=== PATIENT | female | born 1980 | race Caucasian/White ===

== ENCOUNTER 2019-04-01 08:00 | Outpatient (CLI) | payer MEDICAID ==
[2019-04-01 17:34] LABS: BASOPHILS % (AUTO) 0.5 %; EOSINOPHILS # (AUTO) 0.2 10^3/uL (0.0-0.7); EOSINOPHILS % (AUTO) 3.6 %; HGB - HEMOGLOBIN 12.2 g/dL (12.0-16.0); LYMPHOCYTES # (AUTO) 1.4 10^3/uL (1.5-3.5); LYMPHOCYTES % (AUTO) 24.1 %; MEAN CORPUSCULAR HEMOGLOBIN 31.9 pg (27.0-31.0); MEAN CORPUSCULAR HGB CONC 33.1 g/dL (32.0-36.0); MEAN CORPUSCULAR VOLUME 96.6 fL (81.0-99.0); MEAN PLATELET VOLUME 9.6 fL (7.9-10.8); MONOCYTES # (AUTO) 0.6 10^3/uL (0.0-1.0); NEUTROPHILS # (AUTO) 3.5 10^3/uL (1.5-6.6); NEUTROPHILS % (AUTO) 60.6 %; RED BLOOD COUNT 3.82 10^6/uL (4.20-5.40); RED CELL DISTRIBUTION WIDTH 11.8 % (12.0-15.0); WHITE BLOOD COUNT 5.8 x10^3/uL (4.8-10.8)
[2019-04-01 17:43] LABS: ALBUMIN 4.2 g/dL (3.2-5.5); ALBUMIN/GLOBULIN RATIO 1.6 (1.0-2.2); BILIRUBIN,TOTAL 0.5 mg/dL (0.2-1.0); CALCIUM 8.9 mg/dL (8.5-10.3); CREATININE 0.9 mg/dL (0.4-1.0); TOTAL PROTEIN 6.8 g/dL (6.7-8.2)
== END 2019-04-01 23:58 | disposition home or self-care (01) ==
LOC: LAB.S 08:00
PROVIDERS: ATTEND Physician Assistant Medical
DX: Z51.81 Encounter for therapeutic drug level monitoring (principal); Z79.899 Other long term (current) drug therapy
CPT/HCPCS: 36415; 80053; 85025

== ENCOUNTER 2019-04-12 12:11 | Outpatient (CLI) | payer MEDICAID ==
[2019-04-12 18:09] LABS: BASOPHILS % (AUTO) 0.6 %; EOSINOPHILS # (AUTO) 0.3 10^3/uL (0.0-0.7); EOSINOPHILS % (AUTO) 4.7 %; HGB - HEMOGLOBIN 11.3 g/dL (12.0-16.0); LYMPHOCYTES # (AUTO) 1.4 10^3/uL (1.5-3.5); LYMPHOCYTES % (AUTO) 26.5 %; MEAN CORPUSCULAR HEMOGLOBIN 31.8 pg (27.0-31.0); MEAN CORPUSCULAR VOLUME 99.4 fL (81.0-99.0); MEAN PLATELET VOLUME 9.8 fL (7.9-10.8); MONOCYTES # (AUTO) 0.7 10^3/uL (0.0-1.0); MONOCYTES % (AUTO) 12.9 %; NEUTROPHILS # (AUTO) 2.9 10^3/uL (1.5-6.6); NEUTROPHILS % (AUTO) 55.1 %; PLT - PLATELET COUNT 76 10^3/uL (130-450); RED BLOOD COUNT 3.55 10^6/uL (4.20-5.40); RED CELL DISTRIBUTION WIDTH 11.9 % (12.0-15.0); WHITE BLOOD COUNT 5.3 x10^3/uL (4.8-10.8)
== END 2019-04-12 12:12 | disposition home or self-care (01) ==
LOC: LAB.S 12:11
PROVIDERS: ATTEND Physician Assistant Medical
DX: R94.8 Abnormal results of function studies of other organs and systems (principal)
CPT/HCPCS: 36415; 85025

== ENCOUNTER 2019-06-19 11:21 | Outpatient (CLI) | payer MEDICAID ==
--- NOTE | 2019-06-19 23:30 | Ultrasound Report ---
Reason: THROMBOCYTOPENIA Procedure Date: 06/19/2019 Accession Number: [id number] / [id number] Procedure: US - Abdomen Complete CPT Code: Final Report FULL RESULT: EXAM: ABDOMEN ULTRASOUND EXAM DATE: 06/19/2019 12:19 PM. CLINICAL HISTORY: THROMBOCYTOPENIA. COMPARISON: None. TECHNIQUE: Real-time scanning was performed with static images obtained. FINDINGS: Liver: Mildly echogenic. Normal in size. 14.8 cm. Main portal vein flow: Hepatopetal. Gallbladder: Multiple calcified gallstones with the largest measuring 1.9 cm. No gallbladder wall thickening or pericholecystic fluid. Negative sonographic Banerjee sign. Biliary System: Common bile duct measures 3 mm. No intrahepatic or extrahepatic ductal dilatation. Pancreas: The visible portions are within normal limits. No ascites. Kidneys: Right: 10.2 cm longitudinally. Normal. No contour-deforming mass, stones, or hydronephrosis. Left: 10.0 cm longitudinally. Normal. No contour-deforming mass, stones, or hydronephrosis. Spleen: 10.1 x 3.5 x 10.3 cm. Normal in size and echotexture. Aorta and Inferior Vena Cava: Within normal limits. Other: None. IMPRESSION: Cholelithiasis without evidence of acute cholecystitis. Mild hepatic steatosis. RADIA
== END 2019-06-19 11:22 | disposition home or self-care (01) ==
LOC: DI 11:21
PROVIDERS: ATTEND Internal Medicine
DX: D69.6 Thrombocytopenia, unspecified (principal); K80.20 Calculus of gallbladder without cholecystitis without obstruction; K76.0 Fatty (change of) liver, not elsewhere classified
CPT/HCPCS: 76700

== ENCOUNTER 2020-05-24 18:31 | Emergency (ER) | payer MEDICAID ==
--- NOTE | 2020-05-24 18:53 | ED Physician Documentation ---
History of Present Illness - Stated complaint Stated Complaint: STROKE LIKE SYMPTOMS - Additonal information Additional information: 40-year-old female is brought to the emergency department for evaluation of aphasia right-sided facial droop. Last known normal was yesterday evening before going to bed. The sister reports that the patient slept all day today but about 430 or 5 this afternoon mom decided to wake the patient up. When she woke up she was noted to have some aphasia saying inappropriate words, having slurred speech and had right-sided facial droop. Patient does have a history of depression. Is not taking anticoagulation per the sister no history of alcohol or drug use. There does appear to be a history of a thrombocytopenia in the computer. PD PAST MEDICAL HISTORY - Past Medical History Cardiovascular: None Neuro: None Endocrine/Autoimmune: None GI: None : None Psych: Depression Musculoskeletal: None Derm: None - Present Medications Home Medications: Ambulatory Orders Medication Instructions Recorded Confirmed Escitalopram [Lexapro] 10 mg PO DAILY 05/31/19 05/24/20 Mecobalamin [B12 Active] 1,000 mcg PO DAILY 05/31/19 05/24/20 traZODone [Desyrel] 50 mg PO DAILY 05/31/19 05/24/20 - Allergies Allergies/Adverse Reactions: Allergies Allergy/AdvReac Type Severity Reaction Status Date / Time No Known Drug Allergies Allergy Verified 05/24/20 18:44 - Social History Smoking Status: Never smoker PD ED PE EXPANDED - General General: No acute distress - Eyes Eyes: PERRL (Patient was unable to participate in extraocular movement exam) - Cardiac Cardiac: Regular Rate, Regular Rhythm, Radial strong equal, Cap refill < 2 sec - Respiratory Respiratory: Clear to ausultation ken. No: Distress, Labored - Abdomen Abdomen: Normal Bowel sounds. No: Tender to palpation - Neuro Neuro: Confused, CN deficit (Right-sided facial droop, slurring of words. Some aphasia and inappropriate word expression. Right arm positive motor drift. Left arm and legs intact with equal strength.), Aphasia (Mild right-sided facial droop. Slurred words. Inappropriate word finding.). No: Normal Speech, CNII- XII intact - GCS Eye Opening: Spontaneous Motor: Obeys Commands Verbal: Inappropriate Total: 13 Results - Vitals Vitals: Vital Signs - 24 hr 05/24/20 05/24/20 05/24/20 18:41 18:56 19:21 Temperature 36.5 C Heart Rate 59 L 55 L 65 Respiratory 19 19 17 Rate Blood Pressure 103/74 103/74 127/114 H O2 Saturation 100 100 100 05/24/20 05/24/20 19:41 19:54 Temperature 37.4 C Heart Rate 53 L 56 L Respiratory 20 18 Rate Blood Pressure 98/71 O2 Saturation 100 100 Oxygen O2 Source Room air - EKG (time done) 1920 Rate: Rate (enter#) (62) Rhythm: NSR [place]: Normal Intervals: Normal DC QRS: Normal Ischemia: Normal ST segments Compare to prior EKG: Old EKG unavailable Computer interpretation: Agree with computer - Labs Labs: Laboratory Tests 05/24/20 05/24/20 05/24/20 18:47 18:52 18:52 WBC 9.9 RBC 4.65 Hgb 14.9 Hct 44.9 MCV 96.6 MCH 32.0 H MCHC 33.2 RDW 11.8 L Plt Count 254 MPV 8.8 Neut # (Auto) 8.7 H Lymph # (Auto) 0.7 L [place] # (Auto) 0.5 Eos # (Auto) 0.0 Baso # (Auto) 0.0 Absolute Nucleated RBC 0.00 Nucleated RBC % 0.0 PT 13.8 H INR 1.3 H Sodium Potassium Chloride Carbon Dioxide Anion Gap BUN Creatinine Estimated GFR (MDRD) Glucose POC Whole Bld Glucose 122 H Calcium Total Bilirubin AST ALT Alkaline Phosphatase Total Protein Albumin Globulin Albumin/Globulin Ratio Lipase Urine Color Urine Clarity Urine pH Ur Specific [place] Urine Protein Urine Glucose (UA) Urine Ketones Urine Occult Blood Urine Nitrite Urine Bilirubin Urine Urobilinogen Ur Leukocyte Esterase Ur Microscopic Review Urine Culture Comments Urine HCG, Qual Nasal Adenovirus (PCR) Nasal B. parapertussis DNA (PCR) Nasal Coronavir 229E PCR Nasal Coronavir HKU1 PCR Nasal Coronavir NL63 PCR Nasal Coronavir OC43 PCR Nasal Enterovir/Rhinovir PCR Nasal Influenza B PCR Nasal Influenza A PCR Nasal Parainfluen 1 PCR Nasal Parainfluen 2 PCR Nasal Parainfluen 3 PCR Nasal Parainfluen 4 PCR Nasal RSV (PCR) Nasal B.pertussis DNA PCR Nasal C.pneumoniae (PCR) [place]onal[place] Human Metapneumo PCR Nasal M.pneumoniae (PCR) Nasal SARS-CoV-2 (PCR) Urine Opiates Screen Ur Oxycodone Screen Urine Methadone Screen Ur Propoxyphene Screen Ur Barbiturates Screen Ur Tricyclics Screen Ur Phencyclidine Scrn Ur Amphetamine Screen U Methamphetamines Scrn U Benzodiazepines Scrn Urine Cocaine Screen U Cannabinoids Screen 05/24/20 05/24/20 05/24/20 18:52 19:15 19:35 WBC RBC Hgb Hct MCV MCH MCHC RDW Plt Count MPV Neut # (Auto) Lymph # (Auto) [place] # (Auto) Eos # (Auto) Baso # (Auto) Absolute Nucleated RBC Nucleated RBC % PT INR Sodium 141 Potassium 3.8 Chloride 102 Carbon Dioxide 24 Anion Gap 15.0 H BUN 13 Creatinine 0.8 Estimated GFR (MDRD) 80 L Glucose 145 H POC Whole Bld Glucose Calcium 9.7 Total Bilirubin 0.6 AST 21 ALT 18 Alkaline Phosphatase 51 Total Protein 8.4 H Albumin 4.8 Globulin 3.6 Albumin/Globulin Ratio 1.3 Lipase 37 Urine Color YELLOW Urine Clarity CLEAR Urine pH 5.5 Ur Specific [place] >=1.030 H Urine Protein NEGATIVE Urine Glucose (UA) NEGATIVE Urine Ketones 40 H Urine Occult Blood NEGATIVE Urine Nitrite NEGATIVE Urine Bilirubin NEGATIVE Urine Urobilinogen 0.2 (NORMAL) Ur Leukocyte Esterase NEGATIVE Ur Microscopic Review NOT INDICATED Urine Culture Comments NOT INDICATED Urine HCG, Qual NEGATIVE Nasal Adenovirus (PCR) NOT DETECTED Nasal B. parapertussis DNA (PCR) NOT DETECTED Nasal Coronavir 229E PCR NOT DETECTED Nasal Coronavir HKU1 PCR NOT DETECTED Nasal Coronavir NL63 PCR NOT DETECTED Nasal Coronavir OC43 PCR NOT DETECTED Nasal Enterovir/Rhinovir PCR NOT DETECTED Nasal Influenza B PCR NOT DETECTED Nasal Influenza A PCR NOT DETECTED Nasal Parainfluen 1 PCR NOT DETECTED Nasal Parainfluen 2 PCR NOT DETECTED Nasal Parainfluen 3 PCR NOT DETECTED Nasal Parainfluen 4 PCR NOT DETECTED Nasal RSV (PCR) NOT DETECTED Nasal B.pertussis DNA PCR NOT DETECTED Nasal C.pneumoniae (PCR) NOT DETECTED [place] Human Metapneumo PCR NOT DETECTED Nasal M.pneumoniae (PCR) NOT DETECTED Nasal SARS-CoV-2 (PCR) NOT DETECTED Urine Opiates Screen NEGATIVE Ur Oxycodone Screen NEGATIVE Urine Methadone Screen NEGATIVE Ur Propoxyphene Screen NEGATIVE Ur Barbiturates Screen NEGATIVE Ur Tricyclics Screen NEGATIVE Ur Phencyclidine Scrn NEGATIVE Ur Amphetamine Screen NEGATIVE U Methamphetamines Scrn NEGATIVE U Benzodiazepines Scrn NEGATIVE Urine Cocaine Screen NEGATIVE U Cannabinoids Screen NEGATIVE - Rads (name of study) CTA head and neck w/wo Radiology: Final report received (Large intraparenchymal hemorrhage in the left upper lobe measuring 5.3 cm mild to moderate 6 mm left to right midline shift. Effacement of the anterior horn of the left ventricle. No large vessel occlusion no aneurysm identified) PD MEDICAL DECISION MAKING - ED course Complexity details: reviewed results, re-evaluated patient, considered differential, d/w patient, d/w retirement sales consultant ED course: 40-year-old female presented to the emergency department for aphasia right-sided facial droop and right-sided weakness. She was last known normal last night. Per the family she slept all day today but when awakened they noted the aphasia and right-sided deficits. Patient was taken emergently to the CT scanner during which a large 5.3 cm intraparenchymal hemorrhage was seen on the left side. We immediately contacted [facility] and I spoke with neurosurgeon Dr. Meraz who is agreed to transfer the patient and acceptance. She will go directly to the emergency department and given road and weather conditions will be flown emergently. Urine tox screen is negative. Screening CBC shows no significant thrombocytopenia. Electrolytes renal function preserved. Appropriate COBRA paperwork was completed. Patient will be flown to [facility] under the care of neurosurgery there. Accepting physician Dr. Meraz. Pt remains hemodynamically stable without hypertension. She is maintaining her airway and has otherwise remained stable here in the ED Departure - Departure Disposition: 02 Transfer Acute Care Hosp Clinical Impression: ICH (intracerebral hemorrhage) Qualifiers: Intracerebral hemorrhage etiology: nontraumatic Cerebral hemorrhage location: cerebral hemisphere, unspecified portion Laterality: left Qualified Code(s): I61.2 - Nontraumatic intracerebral hemorrhage in hemisphere, unspecified Discharge Date/Time: 05/24/20 20:12
[2020-05-24 19:00] LABS: BASOPHILS % (AUTO) 0.4 %; HGB - HEMOGLOBIN 14.9 g/dL (12.0-16.0); LYMPHOCYTES # (AUTO) 0.7 10^3/uL (1.5-3.5); LYMPHOCYTES % (AUTO) 6.7 %; MEAN CORPUSCULAR HGB CONC 33.2 g/dL (32.0-36.0); MEAN CORPUSCULAR VOLUME 96.6 fL (81.0-99.0); MEAN PLATELET VOLUME 8.8 fL (7.9-10.8); MONOCYTES # (AUTO) 0.5 10^3/uL (0.0-1.0); NEUTROPHILS # (AUTO) 8.7 10^3/uL (1.5-6.6); NEUTROPHILS % (AUTO) 87.7 %; PLT - PLATELET COUNT 254 10^3/uL (130-450); RED BLOOD COUNT 4.65 10^6/uL (4.20-5.40); RED CELL DISTRIBUTION WIDTH 11.8 % (12.0-15.0); WHITE BLOOD COUNT 9.9 x10^3/uL (4.8-10.8)
[2020-05-24] MEDS ORDERED: IOVERSOL 320 100 ML VIAL IVP ONE ×2 (19:00→19:18)
[2020-05-24 19:06] LABS: INR 1.3 (0.8-1.2); PT - PROTHROMBIN TIME 13.8 secs (9.9-12.6)
[2020-05-24 19:12] LABS: ALBUMIN 4.8 g/dL (3.2-5.5); ALBUMIN/GLOBULIN RATIO 1.3 (1.0-2.2); BILIRUBIN,TOTAL 0.6 mg/dL (0.2-1.0); CALCIUM 9.7 mg/dL (8.5-10.3); CREATININE 0.8 mg/dL (0.4-1.0); TOTAL PROTEIN 8.4 g/dL (6.7-8.2)
[2020-05-24 19:26] LABS: MUDS CUTOFF CONCENTRATIONS CUTOFF CONC BELOW:
[2020-05-24 19:28] LABS: BILIRUBIN,URINE NEGATIVE (NEGATIVE); GLUCOSE, URINE (UA) NEGATIVE (NEGATIVE); KETONES,URINE (UA) 40 mg/dL (NEGATIVE); LEUKOCYTE ESTERASE, URINE NEGATIVE (NEGATIVE); NITRITE,URINE NEGATIVE (NEGATIVE); OCCULT BLOOD,URINE NEGATIVE (NEGATIVE); PH,URINE 5.5 PH (5.0-7.5); PROTEIN,URINE NEGATIVE (NEGATIVE); UROBILINOGEN,URINE 0.2 (NORMAL) E.U./dL (NORMAL)
[2020-05-24 19:30] LABS: CLARITY,URINE CLEAR (CLEAR); HCG UR QUAL NEGATIVE
--- NOTE | 2020-05-24 19:40 | CT Report ---
PROCEDURE: ANGIO HEAD W/WO INDICATIONS: L sided facial droop CONTRAST: IV CONTRAST: Optiray 320 ml: 80 PO CONTRAST: *NO PO CONTRAST TECHNIQUE: Precontrast 4.5 mm thick angled axial sections acquired from the foramen magnum to the vertex. Afte r the administration of intravenous contrast, 1 mm thick sections acquired through the [place] of [place] is. Postcontrast 4.5 mm thick sections then re-acquired from the foramen magnum to the vertex. 3-di mensional qetscqk-phntdpdoc-hzqbtlqdbg (MIP) and/or volume rendering reformats were acquired of the c entral intracranial vasculature. For radiation dose reduction, the following was used: automated ex posure control, adjustment of mA and/or kV according to patient size. COMPARISON: None. FINDINGS: Image quality: Excellent. Anterior circulation: Intracranial internal carotid arteries are normal in size and flow. The flow within the paired anterior cerebral arteries is normal and symmetric. The flow within the middle cer ebral arteries is normal and symmetric. The anterior communicating artery is seen. No aneurysms are seen. Posterior circulation: Visualized portions of the vertebral arteries demonstrate normal caliber, and join to form a normal appearing basilar artery. Flow within the posterior cerebral arteries is norm al and symmetric. No aneurysms are seen. CSF spaces: Ventricles are normal in size and shape. Basal cisterns are patent. No extra-axial flu id collections. Brain: Hyperdense blood products in the left temporal lobe measuring 5.3 x 4.2 x 3.7 cm, (5/14 and /). There is effacement of the left lateral ventricle. There is 6 mm of pjxu-np-[id number] midline shift . There is a vessel coursing through this area of hemorrhage on the delayed phase only. Suspect a ve in. [place]-white matter interface appears intact. Skull and face: Calvarium and facial bones appear intact, without suspicious lesions. Sinuses: Visualized sinuses and mastoids are clear. IMPRESSION: 1. Large intraparenchymal hemorrhage in the left upper lobe measuring 5.3 cm. Mild to moderate 6 mm o f [id number] midline shift. Effacement of the anterior horn of the left ventricle. 2. No large vessel occlusion. No aneurysm identified. Preliminary results were communicated to Crystal Olivera at 05/24/2020 7:23 PM PST. Reviewed by: Rashaun Jordan MD on 05/24/2020 7:38 PM PST Approved by: Rashaun Jordan MD on 05/24/2020 7:38 PM PST Station ID: [id number]
[2020-05-24 19:42] VITALS: BP 98/71
[2020-05-24 19:43] LABS: AMPHETAMINE SCREEN,URINE NEGATIVE (NEGATIVE); BENZODIAZEPINES SCREEN, URINE NEGATIVE (NEGATIVE); COCAINE SCREEN URINE NEGATIVE (NEGATIVE); METHADONE SCREEN, URINE NEGATIVE (NEGATIVE); METHAMPHETAMINES SCREEN, URINE NEGATIVE (NEGATIVE); OPIATE SCREEN, URINE NEGATIVE (NEGATIVE); OXYCODONE SCREEN, URINE NEGATIVE (NEGATIVE); PROPOXYPHENE SCREEN, URINE NEGATIVE (NEGATIVE); TRICYCLIC ANTIDEPRESSANT,URINE NEGATIVE (NEGATIVE)
--- NOTE | 2020-05-24 19:45 | CT Report ---
PROCEDURE: ANGIO NECK W INDICATIONS: aphasia; facial droop CONTRAST: IV CONTRAST: Optiray 320 ml: 80 PO CONTRAST: *NO PO CONTRAST TECHNIQUE: After the administration of intravenous contrast, 1.5 mm axial sections acquired from the aortic arch to the [place] of [place]. Coronal 3-D maximum intensity projection (MIP) and/or volume rendering ref ormats were then performed. For radiation dose reduction, the following was used: automated exposur e control, adjustment of mA and/or kV according to patient size. COMPARISON: None. FINDINGS: Image quality: Excellent. Left temporal lobe intraparenchymal hematoma. Please see separately dictated CT head without and with IV contrast. Carotid system: The great vessels demonstrate a conventional anatomy as they arise from the aortic a rch. The origins of the common carotid arteries appear patent. The common carotid arteries demonstr ate normal calibers and courses. The bifurcation regions appear normal bilaterally. The internal ca rotid arteries demonstrate normal caliber and course. Posterior circulation: The origins of the vertebral arteries appear patent. The more superior porti ons of the vertebral arteries demonstrate normal course and caliber. They join to form a normal appe aring basilar artery. Soft tissues: Visualized neck soft tissues demonstrate no suspicious abnormalities. The thyroid gla nd is normal in size. Bones: No suspicious bony lesions. Visualized cervical spine appears normally aligned. IMPRESSION: No large vessel occlusion in the neck. No stenosis. No dissection. Large left temporal lobe intraparenchymal hematoma. Please see separately dictated CT head without and with IV contrast. The estimate of stenosis included in the report of the imaging study was calculated using the NASCET method Reviewed by: Rashaun Jordan MD on 05/24/2020 7:44 PM PST Approved by: Rashaun Jordan MD on 05/24/2020 7:44 PM PST Station ID: [id number]
[2020-05-24 22:02] LABS: C. PNEUMONIAE- RESP PCR PANEL NOT DETECTED
== END 2020-05-24 20:12 | disposition short-term general hospital (02) ==
LOC: ED 18:31
DX: I61.2 Nontraumatic intracerebral hemorrhage in hemisphere, unspecified (principal); G81.91 Hemiplegia, unspecified affecting right dominant side; R47.01 Aphasia; R29.810 Facial weakness; I49.1 Atrial premature depolarization; Z20.822 Contact with and (suspected) exposure to COVID-19
CPT/HCPCS: 0202U; 36415; 51702; 70496; 70498; 80053; 80306; 81003; 81025; 83690; 85025; 85610; 93005; 99281; 99285; Q9967; 81001; 87086

== ENCOUNTER 2020-05-24 21:08 | Outpatient (CLI) | payer MEDICAID | END 2020-05-24 21:09 | disposition other institution (70) | LOC: EMS 21:08 | DX: I61.9 Nontraumatic intracerebral hemorrhage, unspecified (principal) | CPT/HCPCS: A0425; A0428 ==

== ENCOUNTER 2020-07-11 11:16 | Emergency (ER) | payer MEDICAID ==
[2020-07-11 12:10] LABS: BILIRUBIN,URINE NEGATIVE (NEGATIVE); GLUCOSE, URINE (UA) NEGATIVE (NEGATIVE); KETONES,URINE (UA) TRACE mg/dL (NEGATIVE); LEUKOCYTE ESTERASE, URINE TRACE (NEGATIVE); NITRITE,URINE NEGATIVE (NEGATIVE); OCCULT BLOOD,URINE NEGATIVE (NEGATIVE); PROTEIN,URINE 30 mg/dL (NEGATIVE); UROBILINOGEN,URINE 0.2 (NORMAL) E.U./dL (NORMAL)
[2020-07-11 12:11] LABS: CLARITY,URINE SL. CLOUDY (CLEAR)
[2020-07-11 12:12] LABS: HCG UR QUAL NEGATIVE
[2020-07-11 12:15] LABS: BACTERIA,URINE Rare /HPF (None Seen); RBC,URINE 0-5 /HPF (0-5); SQUAMOUS EPITHELIAL CELL,UR MANY Squamous (<= Few)
[2020-07-11 12:51] LABS: ALBUMIN 4.1 g/dL (3.2-5.5); ALBUMIN/GLOBULIN RATIO 1.2 (1.0-2.2); BILIRUBIN,TOTAL 0.4 mg/dL (0.2-1.0); CALCIUM 9.7 mg/dL (8.5-10.3); CREATININE 0.8 mg/dL (0.4-1.0); POTASSIUM 3.7 mmol/L (3.5-5.0); TOTAL PROTEIN 7.6 g/dL (6.7-8.2)
[2020-07-11] MEDS ORDERED: SODIUM CHLORIDE 0.9% 1,000 ML IV STA (13:20)
--- NOTE | 2020-07-11 13:21 | ED Physician Documentation ---
PD HPI SYNCOPE - Stated complaint Stated Complaint: LOSS OF CONSCIOUNESS IN PT/OT - Chief complaint Chief Complaint: General - History obtained from History obtained from: Patient - History of Present Illness Witnessed: Witnessed Timing - onset: Today Duration: Seconds Preceding symptoms: Vision changes, Palpitations, Light headed Associated symptoms: Other (recovered) Contributing factors: Decreased PO intake, Exertion, Other (recent craniotomy) Injury occurred: None Similar symptoms before: Has not had sx before Recently seen: Emergency Dept, Surgery, Transferred - Additional information Additional information: 40-year-old female 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 She has recovered most of her function and today in physical therapy she was riding an exercise bike when she had a syncopal episode after becoming diaphoretic and nauseas. Review of Systems Constitutional: denies: Fever Eyes: denies: Decreased vision Ears: denies: Ear pain Nose: denies: Congestion Throat: denies: Oral lesions / sores Cardiac: denies: Chest pain / pressure, Palpitations Respiratory: denies: Dyspnea, Cough GI: denies: Abdominal Pain, Nausea, Constipation, Diarrhea : denies: Dysuria, Frequency Skin: denies: Rash Musculoskeletal: denies: Neck pain, Back pain, Extremity pain Neurologic: reports: Syncope. denies: Generalized weakness, Focal weakness, Numbness, Seizure, Confused, Altered mental status PD PAST MEDICAL HISTORY - Past Medical History Past Medical History: Yes Cardiovascular: None Neuro: None, CVA Endocrine/Autoimmune: None GI: None : None Psych: Depression Musculoskeletal: None Derm: None - Past Surgical History Past Surgical History: Yes - Present Medications Home Medications: Ambulatory Orders Medication Instructions Recorded Confirmed Escitalopram [Lexapro] 10 mg PO DAILY 05/31/19 07/11/20 traZODone [Desyrel] 50 mg PO DAILY 05/31/19 07/11/20 - Allergies Allergies/Adverse Reactions: Allergies Allergy/AdvReac Type Severity Reaction Status Date / Time No Known Drug Allergies Allergy Verified 05/24/20 18:44 - Social History Does the pt smoke?: No Smoking Status: Never smoker Does the pt drink ETOH?: No Does the pt have substance abuse?: No - Immunizations Immunizations are current?: Yes - POLST Patient has POLST: No PD ED PE NORMAL - Vitals Vital signs reviewed: Yes (tachy) - General General: Alert and oriented X 3, No acute distress, Well developed/nourished - HEENT HEENT: PERRL, EOMI, Ears normal, Other (There is asymetry to the head with) - Neck Neck: Supple, no meningeal sign, No bony TTP - Cardiac Cardiac: No murmur, Other (tachy to 110) - Abdomen Abdomen: Normal bowel sounds, Soft, Non tender, Non distended, No organomegaly - Back Back: No CVA TTP, No spinal TTP - Derm Derm: Normal color, Warm and dry, No rash - Extremities Extremities: No deformity, No edema - Neuro Neuro: Alert and oriented X 3, electronics system mechanic 2-12 intact, No motor deficit, No sensory deficit, Normal speech Eye Opening: Spontaneous Motor: Obeys Commands Verbal: Oriented GCS Score: 15 - Psych Psych: Normal mood, Normal affect Results - Vitals Vitals: Vital Signs - 24 hr 07/11/20 07/11/20 07/11/20 11:23 12:03 13:44 Temperature 36.5 C Heart Rate 102 H 95 89 Respiratory 17 23 13 Rate Blood Pressure 106/64 105/77 109/77 O2 Saturation 100 99 100 Oxygen O2 Source Room air - EKG (time done) 1150 Rate: Rate (enter#) (91) Rhythm: NSR Ischemia: Normal ST segments Compare to prior EKG: Unchanged from prior EKG (SPT 05-24-2020 no sig changes) Computer interpretation: Agree with computer - Labs Labs: Laboratory Tests 07/11/20 07/11/20 07/11/20 12:00 12:25 12:25 WBC RBC Hgb Hct MCV MCH MCHC RDW Plt Count MPV Neut # (Auto) Lymph # (Auto) [place] # (Auto) Eos # (Auto) Baso # (Auto) Absolute Nucleated RBC Nucleated RBC % D-Dimer Sodium 139 Potassium 3.7 Chloride 98 L Carbon Dioxide 25 Anion Gap 16.0 H BUN 10 Creatinine 0.8 Estimated GFR (MDRD) 80 L Glucose 136 H Lactic Acid 1.6 Calcium 9.7 Total Bilirubin 0.4 AST 13 ALT 15 Alkaline Phosphatase 63 Troponin I High Sens Total Protein 7.6 Albumin 4.1 Globulin 3.5 Albumin/Globulin Ratio 1.2 Lipase 34 Urine Color YELLOW Urine Clarity SL. CLOUDY Urine pH 6.0 Ur Specific [place] >=1.030 H Urine Protein 30 H Urine Glucose (UA) NEGATIVE Urine Ketones TRACE Urine Occult Blood NEGATIVE Urine Nitrite NEGATIVE Urine Bilirubin NEGATIVE Urine Urobilinogen 0.2 (NORMAL) Ur Leukocyte Esterase TRACE H Urine RBC 0-5 Urine WBC 4-5 Ur Squamous Epith Cells MANY Squamous H Urine Bacteria Rare Ur Microscopic Review INDICATED Urine Culture Comments NOT INDICATED Urine HCG, Qual NEGATIVE 07/11/20 07/11/20 07/11/20 12:25 13:20 13:40 WBC 7.0 RBC 3.84 L Hgb 11.6 L Hct 35.4 L MCV 92.2 MCH 30.2 MCHC 32.8 RDW 12.0 Plt Count 248 MPV 8.5 Neut # (Auto) 5.6 Lymph # (Auto) 0.6 L [place] # (Auto) 0.6 Eos # (Auto) 0.2 Baso # (Auto) 0.0 Absolute Nucleated RBC 0.00 Nucleated RBC % 0.0 D-Dimer 451.1 H Sodium Potassium Chloride Carbon Dioxide Anion Gap BUN Creatinine Estimated GFR (MDRD) Glucose Lactic Acid Calcium Total Bilirubin AST ALT Alkaline Phosphatase Troponin I High Sens < 2.3 L Total Protein Albumin Globulin Albumin/Globulin Ratio Lipase Urine Color Urine Clarity Urine pH Ur Specific [place] Urine Protein Urine Glucose (UA) Urine Ketones Urine Occult Blood Urine Nitrite Urine Bilirubin Urine Urobilinogen Ur Leukocyte Esterase Urine RBC Urine WBC Ur Squamous Epith Cells Urine Bacteria Ur Microscopic Review Urine Culture Comments Urine HCG, Qual - Rads (name of study) CT head w/o Radiology: Prelim report reviewed (Impression: 1. Postsurgical sequelae. Near complete evacuation of the left frontal lobe basal ganglia hemorrhagic focus, with a smaller, 20 mm diameter hemorrhagic focus remaining. Left frontal craniotomy associated with a subgaleal fluid collection as described above. ), Final report received ( There is a small focus of left lateral herniation of the left frontal lobe into the subgaleal fluid collection as described above. There is associated mild leftward midline shift), EMP read indepedently, See rad report CTA chest Radiology: Prelim report reviewed (Impression: 1. No acute process. No pulmonary embolus.), EMP read indepedently, See rad report Procedures - IVC sono (time) 1310 Bedside IVC sono: IVC measures (cm) (0.94), IVC collapsed c insp (cm) (complete), Dehydration (est 2 liter deficit.) PD MEDICAL DECISION MAKING - ED course Complexity details: reviewed results, re-evaluated patient, considered differential, d/w patient, d/w cognos consultant (Melanie at [facility] neurosurgery reviewed images and requests patient follow up as planned in 2 days time. ) ED course: 40-year-old female with a prior craniotomy for parenchymal hemorrhagic CVA has had a syncopal episode today and this appears on evaluation to be related to dehydration with exertion. She is administered in intravenous fluids and CT of the head is obtained. Patient is hydrated here in the emergency department and we did obtain the CT of the patient's head and this was reviewed with Dr. Navarro at the [facility] neurosurgery, and he recommends the patient follow-up with neurosurgery as planned in 2 days time as she does still need to have a fluid collection addressed. The patient did undergo CTA of the chest with an elevated D-dimer and syncope and this was again a negative study. The patient appears well at the time of discharge and she is being diagnosed with syncope related to exertion with dehydration. Departure - Departure Disposition: 01 Home, Self Care Clinical Impression: Dehydration, Syncope with normal neurologic examination Condition: Stable Instructions: ED Dehydration, ED Syncope Vasovagal Follow-Up: Camila Christian ARNP [Primary Care Provider] - Comments: Follow-up with neurosurgery at [facility] as planned this week.
[2020-07-11 13:24] LABS: BASOPHILS % (AUTO) 0.3 %; EOSINOPHILS # (AUTO) 0.2 10^3/uL (0.0-0.7); EOSINOPHILS % (AUTO) 2.2 %; HCT - HEMATOCRIT 35.4 % (37.0-47.0); HGB - HEMOGLOBIN 11.6 g/dL (12.0-16.0); LYMPHOCYTES # (AUTO) 0.6 10^3/uL (1.5-3.5); LYMPHOCYTES % (AUTO) 8.9 %; MEAN CORPUSCULAR HEMOGLOBIN 30.2 pg (27.0-31.0); MEAN CORPUSCULAR HGB CONC 32.8 g/dL (32.0-36.0); MEAN CORPUSCULAR VOLUME 92.2 fL (81.0-99.0); MEAN PLATELET VOLUME 8.5 fL (7.9-10.8); MONOCYTES # (AUTO) 0.6 10^3/uL (0.0-1.0); MONOCYTES % (AUTO) 8.3 %; NEUTROPHILS # (AUTO) 5.6 10^3/uL (1.5-6.6); PLT - PLATELET COUNT 248 10^3/uL (130-450); RED BLOOD COUNT 3.84 10^6/uL (4.20-5.40)
[2020-07-11] MEDS ORDERED: IOVERSOL 320 100 ML VIAL IVP ONE ×2 (14:44→18:00)
--- NOTE | 2020-07-11 15:15 | CT Report ---
PROCEDURE: ANGIO CHEST W/WO INDICATIONS: tachy, elevated d-dimer syncope CONTRAST: IV CONTRAST: Optiray 320 ml: 80 PO CONTRAST: *NO PO CONTRAST TECHNIQUE: After the administration of intravenous contrast, 2 mm thick sections acquired from the pulmonary api eusebio to the posterior costophrenic angles. 3-dimensional maximum intensity projection (MIP) coronal a nd sagittal reformats were then acquired through the thorax. For radiation dose reduction, the follow ing was used: automated exposure control, adjustment of mA and/or kV according to patient size. COMPARISON: None FINDINGS: Image quality: Excellent. Pulmonary arteries: Pulmonary arteries are normal in size, and demonstrate no intraluminal filling d efects to suggest central pulmonary embolism. Lungs and pleura: Lungs are clear. No pleural effusions or pneumothorax. Central and peripheral ai rways are patent. Mediastinum: Heart size is normal, without pericardial effusion. No mediastinal or hilar adenopathy . Thoracic aorta is normal in caliber and enhancement. Esophagus is normal in caliber, without hiat al hernia. Bones and chest wall: No suspicious bony lesions. Ribs and thoracic spine appear intact throughout. The thyroid is normal. No axillary or supraclavicular adenopathy. Abdomen: Visualized upper abdominal solid organs appear normal in the early arterial phase of enhanc ement. IMPRESSION: 1. No acute process. 2. No pulmonary embolus. Reviewed by: Alexandr Triana MD on 07/11/2020 3:14 PM PDT Approved by: Alexandr Triana MD on 07/11/2020 3:14 PM PDT Station ID: [id number]
--- NOTE | 2020-07-11 15:20 | CT Report ---
PROCEDURE: HEAD WO INDICATIONS: syncope recent craniotomy TECHNIQUE: Noncontrast 4.5 mm thick angled axial sections acquired from the foramen magnum to the vertex. For r adiation dose reduction, the following was used: automated exposure control, adjustment of mA and/or kV according to patient size. COMPARISON: CT examination dated 05/24/2020 FINDINGS: Image quality: Excellent. CSF spaces: Basal cisterns are patent. No extra-axial fluid collections. Ventricles are normal in size and shape. Brain: The previously seen high density focus within the left frontal lobe and basal ganglia appears to have been nearly completely evacuated, with a small, 20 mm diameter focus of intraparenchymal hemo rrhage remaining in that region. There is surrounding encephalomalacia within the left frontal lobe, compatible with postsurgical sequelae. Estrella-white matter interface is normal. There is roughly 6 mm of leftward midline shift. Skull and face: Left frontal craniectomy has been performed, with moderate low-density fluid underlyi ng the scalp, with a maximal thickness of roughly 30 mm diameter. There is a small portion of the lef t anterolateral frontal lobe which is herniated laterally by roughly 10 mm. Sinuses: Visualized sinuses and mastoids are clear. IMPRESSION: 1. Post surgical sequelae. Near-complete evacuation of left frontal lobe/basal ganglia hemorrhagic fo cus, with a smaller, 20 mm diameter hemorrhagic focus remaining. 2. Left frontal craniectomy associated with a subgaleal fluid collection as described above. There is a small focus of left lateral herniation of the frontal lobe into the subgaleal fluid collection as described above. There is associated mild leftward midline shift. Reviewed by: Alexandr Triana MD on 07/11/2020 3:19 PM PDT Approved by: Alexandr Triana MD on 07/11/2020 3:19 PM PDT Station ID: [id number]
[2020-07-11 16:14] VITALS: BP 107/66
== END 2020-07-11 16:45 | disposition home or self-care (01) ==
LOC: ED 11:16
DX: E86.0 Dehydration (principal); R55 Syncope and collapse; R79.89 Other specified abnormal findings of blood chemistry; Z86.73 Personal history of transient ischemic attack (TIA), and cerebral infarction without residual deficits
CPT/HCPCS: 36415; 70450; 71275; 80053; 81001; 81025; 83605; 83690; 84484; 85025; 85379; 93005; 96360; 99284; Q9967; 81003; 87086

== ENCOUNTER 2022-07-05 11:06 | Outpatient (CLI) | payer MEDICAID ==
[2022-07-05 14:40] LABS: BASOPHILS % (AUTO) 0.6 %; EOSINOPHILS # (AUTO) 0.1 10^3/uL (0.0-0.7); HCT - HEMATOCRIT 36.8 % (37.0-47.0); HGB - HEMOGLOBIN 11.6 g/dL (12.0-16.0); LYMPHOCYTES # (AUTO) 1.4 10^3/uL (1.5-3.5); LYMPHOCYTES % (AUTO) 30.5 %; MEAN CORPUSCULAR HEMOGLOBIN 27.1 pg (27.0-31.0); MEAN CORPUSCULAR HGB CONC 31.5 g/dL (32.0-36.0); MEAN PLATELET VOLUME 9.8 fL (7.9-10.8); MONOCYTES # (AUTO) 0.5 10^3/uL (0.0-1.0); MONOCYTES % (AUTO) 11.2 %; NEUTROPHILS # (AUTO) 2.5 10^3/uL (1.5-6.6); NEUTROPHILS % (AUTO) 54.5 %; PLT - PLATELET COUNT 187 10^3/uL (130-450); RED BLOOD COUNT 4.28 10^6/uL (4.20-5.40); RED CELL DISTRIBUTION WIDTH 15.5 % (12.0-15.0); WHITE BLOOD COUNT 4.7 x10^3/uL (4.8-10.8)
[2022-07-05 15:07] LABS: THYROID STIMULATING HORMONE 1.32 uIU/mL (0.34-5.60)
[2022-07-05 15:34] LABS: ALBUMIN 3.7 g/dL (3.2-5.5); ALBUMIN/GLOBULIN RATIO 1.1 (1.0-2.2); BILIRUBIN,TOTAL 0.4 mg/dL (0.2-1.0); CALCIUM 8.7 mg/dL (8.5-10.3); CREATININE 0.9 mg/dL (0.4-1.0); POTASSIUM 3.8 mmol/L (3.5-5.0)
== END 2022-07-05 11:07 | disposition home or self-care (01) ==
LOC: LAB.S 11:06
PROVIDERS: ATTEND Registered Nurse
DX: Z13.228 Encounter for screening for other metabolic disorders (principal); Z13.29 Encounter for screening for other suspected endocrine disorder; Z13.0 Encounter for screening for diseases of the blood and blood-forming organs and certain disorders involving the immune mechanism
CPT/HCPCS: 36415; 80053; 84443; 85025

== ENCOUNTER 2023-07-09 08:30 | Outpatient (CLI) | payer MEDICAID ==
[2023-07-09 14:42] LABS: BASOPHILS % (AUTO) 0.4 %; EOSINOPHILS # (AUTO) 0.2 10^3/uL (0.0-0.7); EOSINOPHILS % (AUTO) 3.5 %; HCT - HEMATOCRIT 40.2 % (37.0-47.0); HGB - HEMOGLOBIN 12.9 g/dL (12.0-16.0); LYMPHOCYTES # (AUTO) 1.3 10^3/uL (1.5-3.5); LYMPHOCYTES % (AUTO) 24.1 %; MEAN CORPUSCULAR HEMOGLOBIN 30.4 pg (27.0-31.0); MEAN CORPUSCULAR HGB CONC 32.1 g/dL (32.0-36.0); MEAN CORPUSCULAR VOLUME 94.8 fL (81.0-99.0); MEAN PLATELET VOLUME 9.4 fL (7.9-10.8); MONOCYTES # (AUTO) 0.5 10^3/uL (0.0-1.0); MONOCYTES % (AUTO) 9.7 %; NEUTROPHILS # (AUTO) 3.4 10^3/uL (1.5-6.6); NEUTROPHILS % (AUTO) 61.9 %; PLT - PLATELET COUNT 215 10^3/uL (130-450); RED BLOOD COUNT 4.24 10^6/uL (4.20-5.40); RED CELL DISTRIBUTION WIDTH 13.8 % (12.0-15.0); WHITE BLOOD COUNT 5.5 x10^3/uL (4.8-10.8)
[2023-07-09 15:07] LABS: THYROID STIMULATING HORMONE 0.98 uIU/mL (0.34-5.60)
[2023-07-09 15:08] LABS: ALBUMIN 3.9 g/dL (3.2-5.5); ALBUMIN/GLOBULIN RATIO 1.4 (1.0-2.2); ALKALINE PHOSPHATASE 49 IU/L (42-121); ALT ALANINE AMINOTRANSFERASE 14 IU/L (10-60); AST ASPARTATE AMINOTRANSFERASE 18 IU/L (10-42); BILIRUBIN,TOTAL 0.5 mg/dL (0.2-1.0); BUN - BLOOD UREA NITROGEN 14 mg/dL (6-20); CALCIUM 9.2 mg/dL (8.5-10.3); CARBON DIOXIDE - CO2 26 mmol/L (21-32); CHLORIDE 107 mmol/L (101-111); CHOL/HDL RATIO 3.9 (<4.4); CHOLESTEROL 217 mg/dL; CREATININE 0.8 mg/dL (0.6-1.3); GFR - MDRD 79 (>89); GLUCOSE 102 mg/dL (74-104); HDL CHOLESTEROL 55 mg/dL; LDL CHOLESTEROL,CALCULATED 146 mg/dL; LDL/HDL RATIO 2.7 (<4.4); SODIUM 138 mmol/L (135-145); TOTAL PROTEIN 6.6 g/dL (6.4-8.9); TRIGLYCERIDES 78 mg/dL (48-352); VLDL CHOLESTEROL 16 mg/dL
== END 2023-07-09 08:31 | disposition home or self-care (01) ==
LOC: LAB.S 08:30
PROVIDERS: ATTEND Registered Nurse
DX: Z51.81 Encounter for therapeutic drug level monitoring (principal); Z13.220 Encounter for screening for lipoid disorders; Z13.29 Encounter for screening for other suspected endocrine disorder; Z79.899 Other long term (current) drug therapy
CPT/HCPCS: 36415; 80053; 80061; 83721; 84443; 85025